=== PATIENT | female | born 1985 | race Caucasian/White ===

== ENCOUNTER 2016-07-05 22:54 | Inpatient (IN) | payer OTHER ==
[~2016-07-05] VITALS: Ht 167.6 cm; Wt 77.1 kg
[2016-07-05] MEDS ORDERED: Oxytocin 10 Unit/mL Inj IM PRN (23:40)
[2016-07-05] MEDS ORDERED: Ondansetron 2 mg/mL 2 mL Inj IVPUSH PRN (23:40)
[2016-07-05] MEDS ORDERED: Lactated Ringer's 1,000 ML IV PRN (23:40)
[2016-07-05] MEDS ORDERED: Sodium Chloride LOK Flush 10 mL Syringe IVFLUSH PRN (23:40)
[2016-07-05] MEDS ORDERED: Hemorrhage Kit, Post Partum XX ONE (23:40)
[2016-07-05] MEDS ORDERED: Oxytocin 30 Units/500 mL LR 30 UNITS in IV Premix 1 EACH IV PRN (23:40)
[2016-07-05] MEDS ORDERED: fentaNYL-PF 50 mCg/mL 2 mL Inj IVPUSH PRN (23:40)
[2016-07-05] MEDS ORDERED: Methylergonovine 0.2 mg/mL Inj IM PRN (23:40)
[2016-07-05] MEDS ORDERED: Carboprost 250 mCg/mL Inj IM PRN (23:40)
[2016-07-06 00:33] LABS: Mean Corpuscular Hemoglobin 28.4 pg (27.0-35.0)
[2016-07-06] MEDS ORDERED: Promethazine 50 mg/mL Inj IM ONE (00:55)
--- NOTE | 2016-07-06 01:48 | HP ---
[address] [address] HISTORY AND PHYSICAL PATIENT: MARINA SEXTON : 1985 MR#: [id number] ADMIT: 07/05/2016 JOB ID: [id number] ADMISSION DIAGNOSIS: A 39 plus 2 week intrauterine and early prodrome of labor with advanced cervical dilation and history of precipitous deliveries. CHIEF COMPLAINT: Contractions. HISTORY OF PRESENT ILLNESS: This is a 30-year-old, -0-0-3 female, who presented at 39 plus 2 weeks gestation with EDC of July 11, 2016, complaining of regular uterine contractions. Her was complicated by a history of precipitous deliveries in the past and, at the time of evaluation, she was 5 cm dilated. However, she was only deisy every 4-8 minutes and was moderately comfortable with her contractions, rated at a 6/10 on the pain scale, but stating she had a high pain tolerance. PAST MEDICAL HISTORY: Denies. PAST SURGICAL HISTORY: Denies. OBSTETRICAL HISTORY: She has had three full-term vaginal deliveries in the remote past without any complications, ranging between 6 to 7-1/2 pounds. She has a history of precipitous deliveries. SOCIAL HISTORY: No tobacco, alcohol, or drug use. FAMILY HISTORY: Noncontributory. MEDICATIONS: Include vitamins. ALLERGIES: She has no known drug allergies. LABORATORY DATA: Shows a blood type of AB positive, antibody screen negative, rubella immune, varicella immune, hep B surface antigen negative, RPR nonreactive, and GBS negative. OBJECTIVE: Her blood pressure is 111/68, her heart rate is 84, respiratory rate is 18, and her temperature is 37 degrees. In general, she is awake, alert, oriented, in no acute distress. She is comfortable in bed. Tolerating her contractions well. Her abdomen is soft, nontender, nondistended. EFW is approximately 8 pounds. Her extremities show no tenderness and no edema. heart tones show 125 baseline, moderate variability, with no decelerations present. She is deisy every 3-7 minutes. Vaginal exam by the nurse shows that she is 5 cm dilated, 80% effaced, and -2 station. ASSESSMENT: This is a 30-year-old, 4 para 3-0-0-3 female, at 39 plus 2 weeks gestation, admitted in what appears to be early prodromal labor, but with a history of precipitous deliveries prior and advanced cervical dilation. I have admitted the patient given her history of precipitous deliveries, and I have offered augmentation of labor with artificial rupture of membranes versus therapeutic rest overnight. The patient is unsure if she is ready to proceed with augmentation and elects to proceed with therapeutic rest using morphine and Phenergan, which will be given to her. She will be re-evaluated after waking up from this, to determine labor progress, and further management decisions will be made at that time. She is Rh positive, rubella immune, varicella immune, and GBS negative.
--- NOTE | 2016-07-06 09:19 | PCM.PNOBIP ---
Subjective Date of Service July 06, 2016 Delivery plan: Spontaneous Vaginal Delivery Visit History This is a 30-year-old, -0-0-3 female, who presented at 39 plus 2 weeks gestation with EDC of July 11, 2016, complaining of regular uterine contractions. Her was complicated by a history of precipitous deliveries in the past and, at the time of admission, she was 5 cm dilated. She was only deisy every 4-8 minutes and was moderately comfortable with her contractions, rated at a 6/10 on the pain scale, but stating she had a high pain tolerance. She chose to receive IM morphine and Phenergan overnight to help her with her pain. She declined AROM and does not want Pitocin or any augmentation. Is not planning on having an epidural. Subjective Patient has no complaints today. He is willing to have her membranes ruptured at this time if this will help increase the frequency of her contractions. She is still hesitant to start any Pitocin at this time. Activity: Ambulating Independently Group B Strep Results: Negative Blood Type: AB RH Type: Positive Labs Laboratory Tests 07/06/16 00:20: White Blood Count 7.0, Red Blood Count 4.08, Hemoglobin 11.6, Hematocrit 34.7, Mean Corpuscular Volume 85.0, Mean Corpuscular Hemoglobin 28.4, Mean Corpuscular Hemoglobin Concent 33.4, Red Cell Distribution Width 14.3, Platelet Count 158 Exam Vital Signs Vital Signs: VS reviewed, stable Heart Tracings Heart Tones Baseline 130s bpm Heart Rate Variability: Moderate Heart Rate Accelleration: Present Heart Rate Deceleration: Absent Heart Rate Category: I Tocometry/IUPC Contraction frequency in minutes: every 3 to 13 minutes, irregular Sterile Vaginal Exam Cervical Dilation: 6 cms Cervical Effacement: 90 % Station: -2 Exam General: Alert, Oriented X3, Cooperative, No Acute Distress OB Intrapartum Assessment/Plan Problems: (1) Active labor at term Plan: I discussed with the patient today given minimal cervical change overnight that I would recommend artificial rupture membranes at this time and contractions remained irregular starting Pitocin to augment her labor. She was agreeable to AROM at this time, but would like to hold off on the Pitocin. Status: Acute ICD Code: [id number] Intrapartum plan: Cecilio Hardwick MD July 06, 2016 09:19
[2016-07-06] MEDS ORDERED: Lactated Ringer's 1,000 ML IV SCH (12:02)
[2016-07-06] MEDS ORDERED: Benzocaine (Dermoplast) 20% 60 Gm Spray TOPICAL PRN (12:05)
[2016-07-06] MEDS ORDERED: Oxytocin 30 Units/500 mL LR 30 UNITS in IV Premix 1 EACH IV PRN (12:05)
[2016-07-06] MEDS ORDERED: Carboprost 250 mCg/mL Inj IM PRN (12:05)
[2016-07-06] MEDS ORDERED: Methylergonovine 0.2 mg/mL Inj IM PRN (12:05)
[2016-07-06] MEDS ORDERED: Witch Hazel-Glycerin Pads TOPICAL PRN (12:05)
[2016-07-06] MEDS ORDERED: Hemorrhage Kit, Post Partum XX ONE (12:05)
[2016-07-06] MEDS ORDERED: Oxytocin 10 Unit/mL Inj IM PRN (12:05)
[2016-07-06] MEDS ORDERED: LANOlin HPA 7 Gm Ointment TOPICAL PRN (12:05)
--- NOTE | 2016-07-06 12:09 | PCM.OBVAG ---
Vaginal Delivery Date of Service July 06, 2016 Pre Operative Diagnosis Pre Operative Diagnosis 1. 39 weeks' gestation 2. Labor Post Operative Diagnosis Post Operative Diagnosis 1. 39 weeks' gestation 2. Labor Procedure Obstetical Procedure: Normal Spontaneous Vaginal Delivery Car Body Inspector/Moulder Operator Provider and Moulder Operator: Cecilio Beauchamp M.D. Indication for Procedure Indication for Procedure This is a 30-year-old, -0-0-3 female, who presented at 39 plus 2 weeks gestation with EDC of July 11, 2016, complaining of regular uterine contractions. Her was complicated by a history of precipitous deliveries in the past and, at the time of evaluation, she was 5 cm dilated. Induction: Active labor Findings Obstetrical Findings: (Male), Cord (3 Vessel), Weight ( unavailable at the time of delivery due to maternal infant skin to skin bonding) , Presentation (DONNA), 1 minute (8), 5 minutes (9), Placenta (Intact/ Normal), Perineal Laceration (none) Analgesia/Medications Procedural Analgesia: None Procedure Details Procedure Details 30-year-old who was completely dilated at 1132 hours. She delivered a male infant in a cephalic presentation at 1153 hours. There were no nuchal cords at the time of delivery. The placenta was delivered intact with three- vessel cord at 1142. On inspection of vagina cervix peritoneum there were no perineal, vaginal or cervical lacerations. IV Intake/Output Catheters: None Blood Loss & Administration Estimated Blood Loss: 200 Blood Admin during procedure: No Post Procedure Plan Post Procedure Plan Routine care Cecilio Beauchamp MD July 06, 2016 12:09
[2016-07-07 06:51] LABS: Mean Corpuscular Hemoglobin 28.4 pg (27.0-35.0); Mean Corpuscular Volume 86.8 fL (81-100)
--- NOTE | 2016-07-07 14:21 | PCM.DIMED ---
Discharge Instructions Date of Service July 07, 2016 Dates of Hospitalization July 05, 2016 at 23:59 Diet No restrictions Activity No restrictions Call your provider Fever or Chills, Shortness of breath, Bleeding, Chest pain, Vomitting, Excessive diarrhea, Weakness (unilateral) Patient Instructions Follow-up with PCP in: 2 weeks Ernesto Rogel MD July 07, 2016 14:21
[2016-07-07] MEDS ORDERED: OXYC5TAB72 PO (14:22)
[2016-07-07] MEDS ORDERED: DOCU-41 PO (14:22)
[2016-07-07] MEDS ORDERED: IBUP800T28 PO (14:22)
[2016-07-07 14:44] VITALS: BP 114/66; PULSE 82; RESP 18
--- NOTE | 2016-07-07 22:03 | DIS ---
[address] [address] DISCHARGE SUMMARY PATIENT: MARINA SEXTON : 1985 MR#: [id number] ADMIT: 07/05/2016 JOB ID: [id number] DIS: 07/07/2016 ADMITTING DIAGNOSIS: A 30-year-old, 4 para 3, at 39 weeks and two days, in active labor. DISCHARGE DIAGNOSIS: A 30-year-old, 4, para 4, status post spontaneous vaginal delivery at term. HOSPITAL COURSE: The patient is a 30-year-old, 4, para 4 who came to Labor and Delivery on July 05, 2016, with complaint of contractions. She had been deisy every 4-5 minutes, was examined and found to be 5 cm dilated. The contractions were strong and intense. She spontaneously progressed in labor and at 11:53 p.m. she underwent spontaneous vaginal delivery. Delivered male with Apgars 8 at one minute and 9 at five minutes. The patient had no perineal lacerations, estimated blood loss was 200 mL. Her labs were normal. Group B strep culture was negative. On day one and day two the patient was doing well, breast-feeding, complaining of increased abdominal cramps during breast-feeding only that is better controlled with Motrin and Percocet for breakthrough pain. On exam, the fundus was firm. There was no vaginal discharge or abnormal vaginal bleeding. The vitals were stable. Physical examination was adequate. She was sent home on July 07, 2016, with all discharge criteria met. day two, hemoglobin was 11 hematocrit was 33.6, WBC count 8.6. DISCHARGE MEDICATIONS: Included: 1. Colace 100 mg p.o. b.i.d. p.r.n. 2. Motrin 800 mg p.o. t.i.d. p.r.n. 3. Oxycodone 5 mg q.4 h. p.r.n. for breakthrough pain. FOLLOWUP VISIT: In OB clinic is scheduled in six weeks. SOHAN
== END 2016-07-07 15:30 | disposition home or self-care (01) | DRG 775 ==
LOC: FBCO 22:54 → FBC 23:59
PROVIDERS: ADMIT Obstetrics & Gynecology; ATTEND Obstetrics & Gynecology
PROC: 10E0XZZ Delivery of Products of Conception, External Approach (ICD-10-PCS; principal; 2016-07-06)
PROC: 10907ZC Drainage of Amniotic Fluid, Therapeutic from Products of Conception, Via Natural or Artificial Opening (ICD-10-PCS; 2016-07-06)
DX: O80 Encounter for full-term uncomplicated delivery (principal); Z3A.39 39 weeks gestation of pregnancy; Z37.0 Single live birth